=== PATIENT | female | born 1965 | race Caucasian/White ===

== ENCOUNTER 2021-11-29 23:18 | Emergency (ER) | payer OTHER ==
[2021-11-30] MEDS ORDERED: PROPOFOL 10 MG/ML 20 ML VIAL IV ONE (00:41)
[2021-11-30] MEDS ORDERED: SODIUM CHLORIDE 0.9% 1,000 ML BAG ONE (00:41)
[2021-11-30] MEDS ORDERED: HYDROmorphone 1 MG/ML 1 ML SYRINGE ONE (00:41)
--- NOTE | 2021-11-30 02:12 | XR ---
EXAM: XR Left Forearm, 2 Views CLINICAL HISTORY: Pain XR Reason: PAIN TECHNIQUE: Frontal and lateral views of the left forearm. COMPARISON: November 30, 2021 at 0100 hours FINDINGS: Bones/joints: The elbow fat pads are nondisplaced. Punctate calcification at the lateral upper condyle consistent with prior tendinitis. Punctate calcifications adjacent to the olecranon and distal humerus, likely very small chip or avulsion fractures. No dislocation. Soft tissues: Mild subcutaneous edema over the extensor surface of the proximal forearm and elbow. IMPRESSION: The dislocation has been reduced. There is edema surrounding the elbow and several tiny punctate chip or avulsion fractures adjacent to the distal humerus.
--- NOTE | 2021-11-30 02:13 | XR ---
EXAM: XR Left Humerus, 2 or More Views CLINICAL HISTORY: XR Reason: PAIN TECHNIQUE: Frontal and lateral views of the left humerus. COMPARISON: No relevant prior studies available. FINDINGS: Bones/joints: There is dislocation of the elbow with surrounding edema. The humerus is intact. The shoulder joint is normally aligned. No acute fracture. Soft tissues: See above. IMPRESSION: There is dislocation of the elbow with surrounding edema. The humerus is intact. Shoulder joint is normally aligned. No fractures are identified.
--- NOTE | 2021-11-30 03:11 | XR ---
EXAM: XR Left Elbow Complete, 3 or More Views CLINICAL HISTORY: XR Reason: POST REDUCTION TECHNIQUE: Frontal, lateral and oblique views of the left elbow. COMPARISON: No relevant prior studies available. FINDINGS: Bones/joints: The previously dislocated left elbow has been anatomically reduced. There are 2 mm irregular calcifications adjacent to the distal humerus at the olecranon likely small chip or avulsion fractures. The humerus, radius, and ulna are grossly intact and normally aligned. Soft tissues: Edema surrounding the elbow. IMPRESSION: 1. The previously dislocated left elbow has been anatomically reduced. 2. There are 2 mm irregular calcifications adjacent to the distal humerus at the olecranon likely small chip or avulsion fractures.
== END 2021-11-30 03:39 | disposition home or self-care (01) ==
LOC: EC 23:18
DX: S53.105A Unspecified dislocation of left ulnohumeral joint, initial encounter (principal); W54.8XXA Other contact with dog, initial encounter